=== PATIENT | female | born 1985 | race Caucasian/White ===

== ENCOUNTER 2020-11-08 08:22 | Emergency (ER) | payer OTHER ==
[2020-11-08 09:02] LABS: BASOPHIL 0.2 % (0-2); EOSINOPHIL 0.2 % (0-5); HCT 39.4 % (37.0-47.0); HGB 13.4 g/dl (12.5-16.0); LYMPHOCYTE 12.2 % (15-48); MCH 30.8 pg (25.0-31.0); MCV 90.6 fL (78.0-100.0); MONOCYTE 4.5 % (0-12); MPV 9.5 fL (6.0-9.5); NEUTROPHIL 82.7 % (41-80); NRBC 0; PLT 309 K/uL (150-400); RBC 4.35 M/uL (4.20-5.40); RDW 12.5 % (11.5-14.0); WBC 12.5 K/uL (4.0-10.5)
[2020-11-08 09:32] LABS: ALBUMIN 4.2 g/dL (3.4-5.0); BILIRUBIN - TOTAL 0.5 mg/dL (0.2-1.0); BUN/CREAT RATIO (CALC) 22.1 RATIO; CREATININE 0.68 mg/dL (0.51-0.95); GLOBULIN (CALCULATION) 3.8 g/dL
[2020-11-08 13:24] LABS: BUN/CREAT RATIO (CALC) 20.9 RATIO; CREATININE 0.67 mg/dL (0.51-0.95); POTASSIUM 3.9 mmol/L (3.5-5.1)
[2020-11-08 14:09] LABS: BILIRUBIN NEGATIVE (NEGATIVE); BLOOD NEGATIVE Ery/uL (NEGATIVE); COLOR YELLOW (YELLOW); GLUCOSE (U) NORMAL (NORMAL); LEUKOCYTES 1+ Leu/uL (NEGATIVE); NITRITE POSITIVE (NEGATIVE); PROTEIN NEGATIVE (NEGATIVE); SPECIFIC GRAVITY 1.025 (1.001-1.030); UROBILINOGEN 0.2 mg/dL (0.2-1.0)
[2020-11-08] MEDS ORDERED: PROMETHEGA12.5 MG/SU PR (14:16)
[2020-11-08] MEDS ORDERED: DICYCLOMINE HCL20 MG PO (14:16)
[2020-11-08] MEDS ORDERED: ONDANSETRON ODT4 MG PO (14:16)
[2020-11-08 14:17] LABS: CLARITY HAZY (CLEAR)
[2020-11-08 14:21] LABS: AMPHETAMINES NEGATIVE (NEGATIVE); BARBITURATES NEGATIVE (NEGATIVE); ECSTASY (MDMA) NEGATIVE (NEGATIVE); MARIJUANA (THC) POSITIVE (NEGATIVE); METHADONE NEGATIVE (NEGATIVE); OPIATES NEGATIVE (NEGATIVE); OXYCODONE NEGATIVE (NEGATIVE)
[2020-11-08] MEDS ORDERED: CIPRO500 MG PO (14:26)
[2020-11-08] MEDS ORDERED: METRONIDAZOLE500 MG PO (14:26)
[2020-11-08 14:49] LABS: BACTERIA 4+
[2020-11-08 14:50] LABS: URINARY WBC 20-50
== END 2020-11-08 16:05 | disposition home or self-care (01) ==
LOC: FER 08:22
PROVIDERS: Internal Medicine
DX: R10.84 Generalized abdominal pain (principal); N39.0 Urinary tract infection, site not specified; R11.2 Nausea with vomiting, unspecified; F13.239 Sedative, hypnotic or anxiolytic dependence with withdrawal, unspecified; F11.23 Opioid dependence with withdrawal; F17.290 Nicotine dependence, other tobacco product, uncomplicated; Z88.8 Allergy status to other drugs, medicaments and biological substances
CPT/HCPCS: 36415; 80048; 80053; 80305; 81001; 83690; 83735; 84702; 85025; 87077; 87088; 87186; J0696; J0780; J2060; J2405; J2550; J3411; J3475; J3480; J7030; J7120

== ENCOUNTER 2020-11-10 02:21 | Emergency (ER) | payer OTHER ==
[~2020-11-10 02:21] MED LIST: CIPRO500 MG PO; DICYCLOMINE HCL20 MG PO; METRONIDAZOLE500 MG PO; ONDANSETRON ODT4 MG PO; PROMETHEGA12.5 MG/SU PR
[2020-11-10 03:58] LABS: BASOPHIL 0.2 % (0-2); EOSINOPHIL 0.1 % (0-5); HCT 38.3 % (37.0-47.0); HGB 13.4 g/dl (12.5-16.0); LYMPHOCYTE 13.6 % (15-48); MCV 88.7 fL (78.0-100.0); MONOCYTE 5.4 % (0-12); MPV 10.1 fL (6.0-9.5); NEUTROPHIL 80.3 % (41-80); NRBC 0; PLT 357 K/uL (150-400); RBC 4.32 M/uL (4.20-5.40); RDW 12.7 % (11.5-14.0); WBC 11.6 K/uL (4.0-10.5)
[2020-11-10 04:08] LABS: ALBUMIN 4.2 g/dL (3.4-5.0); BILIRUBIN - TOTAL 0.6 mg/dL (0.2-1.0); BUN/CREAT RATIO (CALC) 22.9 RATIO; CREATININE 0.7 mg/dL (0.51-0.95); GLOBULIN (CALCULATION) 3.6 g/dL; POTASSIUM 3.1 mmol/L (3.5-5.1); TOTAL PROTEIN 7.8 g/dL (6.4-8.2)
[2020-11-10 06:19] LABS: BILIRUBIN 1+ mg/dL (NEGATIVE); BLOOD NEGATIVE Ery/uL (NEGATIVE); CLARITY CLEAR (CLEAR); COLOR YELLOW (YELLOW); GLUCOSE (U) NORMAL (NORMAL); LEUKOCYTES TRACE Leu/uL (NEGATIVE); NITRITE NEGATIVE (NEGATIVE); PROTEIN TRACE (LOW) mg/dL (NEGATIVE); SPECIFIC GRAVITY 1.025 (1.001-1.030); UROBILINOGEN 0.2 mg/dL (0.2-1.0); pH 7.5 (5.0-9.0)
[2020-11-10 06:29] LABS: BACTERIA TRACE
[2020-11-10 06:30] LABS: CALCIUM OXALATE CRYSTALS LARGE
== END 2020-11-10 13:45 ==
LOC: FER 02:21
PROVIDERS: Emergency Medicine Emergency Medical Services
DX: R10.84 Generalized abdominal pain (principal); R11.2 Nausea with vomiting, unspecified; Z20.822 Contact with and (suspected) exposure to COVID-19; F13.239 Sedative, hypnotic or anxiolytic dependence with withdrawal, unspecified; F11.23 Opioid dependence with withdrawal; F17.290 Nicotine dependence, other tobacco product, uncomplicated; Z88.8 Allergy status to other drugs, medicaments and biological substances
CPT/HCPCS: 36415; 74018; 80053; 81001; 83605; 83690; 85025; 96372; J0500; J0696; J1170; J1885; J2060; J2405; J2550; J3480; J7030; U0002